=== PATIENT | male | born 1970 | race Caucasian/White ===

== ENCOUNTER 2017-11-29 22:41 | Emergency (ER) | payer BC ==
[2017-11-29] MEDS ORDERED: Ondansetron 4 MG/2 ML SDV IVPUSH ONE (23:26)
[2017-11-29] MEDS ORDERED: Sodium Chloride 0.9% 10 ML Syringe FLUSH PRN (23:26)
[2017-11-29] MEDS ORDERED: Ketorolac 30 MG/ML SDV IVPUSH ONE (23:26)
[2017-11-29] MEDS ORDERED: Sodium Chloride 0.9% 1,000 ML IV ONE (23:26)
--- NOTE | 2017-11-29 23:48 | EDM.PDOC ---
ED HPI GENERAL MEDICAL PROBLEM - General Chief Complaint: Genitourinary Problem Stated Complaint: LOWER BACL PAIN AND PAIN IN TESTICLES Time Seen by Provider: 11/29/17 22:57 Source of Information: Reports: Patient History Limitations: Reports: No Limitations - History of Present Illness INITIAL COMMENTS - FREE TEXT/NARRATIVE: The patient is a 47-year-old male with a chief complaint of right flank pain. He states he's had pain for about 4 days. There is no provoking factor. The pain is sharp and radiates to his right testicle. It comes and goes. There is no provoking factor. At its worst the pain is very severe and he can't find a comfortable position. Currently the pain is not severe. He has been taking an occasional Aleve and does feel like that helps. He is also noticed that his urine has been very dark and coffee colored on occasion. No known fever. He is nauseated from the pain. No abdominal pain. No testicular swelling. States he had similar symptoms many years ago and thinks he passed a kidney stone but he never did get imaging to confirm. No cough or shortness of breath or chest pain. 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 Denies: Abdominal Pain : Reports: Flank Pain, Hematuria Musculoskeletal: Reports: No Symptoms Skin: Reports: No Symptoms Neurological: Reports: No Symptoms Psychiatric: Reports: No Symptoms Hematologic/Lymphatic: Reports: No Symptoms Immunologic: Reports: No Symptoms ED EXAM, RENAL/ - Physical Exam Exam: See Below Exam Limited By: No Limitations General Appearance: Alert, WD/WN, No Apparent Distress Eye Exam: Bilateral Eye: Normal Inspection Ears: Normal External Exam Nose: Normal Inspection Throat/Mouth: Normal Inspection, Normal Oropharynx, Normal Voice Head: Atraumatic, Normocephalic Neck: Normal Inspection, Supple, Non-Tender, Full Range of Motion Respiratory/Chest: No Respiratory Distress, Lungs Clear, Normal Breath Sounds, Chest Non-Tender Cardiovascular: Normal Peripheral Pulses, Regular Rate, Rhythm, No Murmur GI/Abdominal: Soft, Non-Tender, No Distention. No: Rebound (Male) Exam: Normal Inspection. No: Scrotal Swelling, Scrotum Tenderness (L) , Scrotum Tenderness (R), Testicular Tenderness (L), Testicular Tenderness (R) Back Exam: Normal Inspection, CVA Tenderness (R). No: CVA Tenderness (L) Extremities: Normal Inspection Neurological: Alert, Oriented, Normal Cognition, No Motor/Sensory Deficits Psychiatric: Normal Affect, Normal Mood Skin Exam: Warm, Dry, Intact, Normal Color, No Rash Course - Vital Signs Last Recorded V/S: Last Vital Signs Temp 37.2 C 11/29/17 22:50 Pulse 70 11/29/17 22:50 Resp 17 11/29/17 22:50 BP 133/82 11/29/17 22:50 Pulse Ox 97 11/29/17 22:50 - Orders/Labs/Meds Orders: Active Orders 24 hr Category Date Time Status Peripheral IV Care [RC] . DIRECTED Care 11/29/17 23:26 Active Peripheral IV Care [RC] . DIRECTED Care 11/29/17 23:26 Active Abdomen Pelvis wo Cont [CT] Stat Exams 11/29/17 23:44 Taken Peripheral IV Insertion Adult [OM.PC] Routine Oth 11/29/17 23:26 Ordered Labs: Laboratory Tests 11/29/17 11/29/17 11/29/17 Range/Units 23:05 23:45 23:45 WBC 9.05 (4.23-9.07) K/mm3 RBC 4.45 L (4.63-6.08) M/mm3 Hgb 13.4 L (13.7-17.5) gm/L Hct 39.7 L (40.1-51.0) % MCV 89.2 (79.0-92.2) fl MCH 30.1 (25.7-32.2) pg MCHC 33.8 (32.2-35.5) g/dl RDW Std Deviation 40.4 (35.1-43.9) fL Plt Count 229 (163-337) K/mm3 MPV 9.9 (9.4-12.3) fl Neut % (Auto) 71.9 H (34.0-67.9) % Lymph % (Auto) 16.4 L (21.8-53.1) % [place] % (Auto) 9.2 (5.3-12.2) % Eos % (Auto) 1.9 (0.8-7.0) Baso % (Auto) 0.4 (0.1-1.2) % Neut # (Auto) 6.51 H (1.78-5.38) K/mm3 Lymph # (Auto) 1.48 (1.32-3.57) K/mm3 [place] # (Auto) 0.83 H (0.30-0.82) K/mm3 Eos # (Auto) 0.17 (0.04-0.54) K/mm3 Baso # (Auto) 0.04 (0.01-0.08) K/mm3 Sodium 139 (136-145) mEq/L Potassium 4.1 (3.5-5.1) mEq/L Chloride 104 (98-107) mEq/L Carbon Dioxide 27 (21-32) mEq/L Anion Gap 12.1 (5-15) BUN 21 H (7-18) mg/dL Creatinine 1.1 (0.7-1.3) mg/dL Est Cr Clr Drug Dosing 89.77 mL/min Estimated GFR (MDRD) > 60 (>60) mL/min BUN/Creatinine Ratio 19.1 H (14-18) Glucose 107 H (74-106) mg/dL Calcium 9.3 (8.5-10.1) mg/dL Total Bilirubin 0.5 (0.2-1.0) mg/dL AST 16 (15-37) U/L ALT 19 (16-63) U/L Alkaline Phosphatase 49 (46-116) U/L Total Protein 7.2 (6.4-8.2) g/dl Albumin 4.0 (3.4-5.0) g/dl Globulin 3.2 gm/dL Albumin/Globulin Ratio 1.3 (1-2) Urine Color Yellow (Yellow) Urine Appearance Clear (Clear) Urine pH 6.0 (5.0-8.0) Ur Specific [place] > or = 1.030 (1.005-1.030) Urine Protein Negative (Negative) Urine Glucose (UA) Negative (Negative) Urine Ketones Negative (Negative) Urine Occult Blood 3+ H (Negative) Urine Nitrite Negative (Negative) Urine Bilirubin Negative (Negative) Urine Urobilinogen 0.2 (0.2-1.0) Ur Leukocyte Esterase Negative (Negative) Urine RBC 30-40 H (0-5) /hpf Urine WBC 0-5 (0-5) /hpf Ur Epithelial Cells 0-5 (0-5) /hpf Urine Bacteria Few (FEW) /hpf Urine Mucus Few (FEW) /hpf Meds: Medications Discontinued Medications Generic Name Dose Route Start Last Admin Trade Name Freq PRN Reason Stop Dose Admin Sodium Chloride 1,000 mls @ 1,000 mls/hr 11/29/17 23:26 11/29/17 23:41 Normal Saline IV 11/30/17 00:25 1,000 mls/hr ONETIME ONE Administration Ketorolac Tromethamine 30 mg 11/29/17 23:26 11/29/17 23:41 Toradol IVPUSH 11/29/17 23:27 30 mg ONETIME ONE Administration Ondansetron HCl 4 mg 11/29/17 23:26 11/29/17 23:41 Zofran IVPUSH 11/29/17 23:27 4 mg ONETIME ONE Administration Oxycodone HCl 5 mg 11/30/17 00:43 11/30/17 01:03 Oxycodone PO 11/30/17 00:44 5 mg ONETIME ONE Administration Sodium Chloride 10 ml 11/29/17 23:26 11/29/17 23:42 Saline Flush FLUSH 10 ml ASDIRECTED PRN Administration Keep Vein Open - Re-Assessments/Exams Free Text/Narrative Re-Assessment/Exam: 11/30/17 00:44 UA shows microscopic hematuria, no evidence of infection. Creatinine 1.1. CBC normal. CT shows 4mm stone in the mid-distal ureter. 11/30/17 03:59 Departure - Departure Time of Disposition: 02:00 Disposition: Home, Self-Care 01 Clinical Impression: Ureterolithiasis - Discharge Information Prescriptions: Ibuprofen 800 mg PO TID PRN #40 tablet PRN Reason: Pain oxyCODONE 5 mg PO QID PRN #15 tab PRN Reason: Pain Instructions: Dysuria Referrals: Barbara Noyola PA [Primary Care Provider] - Forms: ED Department Discharge Additional Instructions: 1. Take ibuprofen as prescribed for pain. Take oxycodone as needed for severe pain. No driving/working while taking oxycodone as it may make you sleepy or confused. 2. Follow up with your regular doctor or a urologist if you are still having significant pain after a week. 3. Return to the ED if you have severe pain, fever with temp 101 or higher, multiple episodes of vomiting without keeping liquids down, or other concerning symptoms. - My Orders Last 24 Hours: My Active Orders 11/29/17 23:26 Peripheral IV Care [RC] . DIRECTED Peripheral IV Care [RC] . DIRECTED Peripheral IV Insertion Adult [OM.PC] Routine 11/29/17 23:44 Abdomen Pelvis wo Cont [CT] Stat - Assessment/Plan Last 24 Hours: My Active Orders 11/29/17 23:26 Peripheral IV Care [RC] . DIRECTED Peripheral IV Care [RC] . DIRECTED Peripheral IV Insertion Adult [OM.PC] Routine 11/29/17 23:44 Abdomen Pelvis wo Cont [CT] Stat
[2017-11-30] MEDS ORDERED: oxyCODONE 5 MG Tab PO ONE (00:43)
--- NOTE | 2017-11-30 08:52 | CT ---
CT abdomen and pelvis Technique: Multiple axial sections were obtained from above the dome of the diaphragm inferiorly through the pubic symphysis. Intravenous and oral contrast was not utilized. Study has been performed as a ureteral stone protocol. Findings: Right ureter is dilated. This finding is caused by distal right ureteral stone measuring about 5 mm. Stone occurs approximately 4-5 cm proximal to the UVJ. Multiple small nonobstructing calculi are seen within both kidneys. No additional ureteral calculi are seen. Visualized lung bases are clear. Noncontrast appearance of the liver appears within normal limits. Abnormality is identified within the posterior spleen measuring about 2.8 cm. This does not have the appearance of a simple cyst. Adrenal glands show no nodule. Pancreas is within normal limits. Gallbladder contains no calcified gallstones. Aorta shows no aneurysm. No retroperitoneal adenopathy or mesenteric abnormalities are seen. No pelvic mass or adenopathy is seen. Appendix is seen which is normal in size. Bone window settings were reviewed which appear within normal limits for the patient's age. Impression: 1. Multiple small nonobstructing calculi within both kidneys. 2. Right ureteral dilatation caused by an obstructing distal right ureteral stone measuring approximately 5 mm. Stone is located approximately 4-5 cm proximal to the UVJ. 3. 2.8 cm splenic lesion, ultrasound is recommended to further evaluate. Diagnostic code #9 I agree with preliminary report issued by [facility] ([facility] report finalized on 11/30/17, 2:33 AM Central Time)
== END 2017-11-30 01:33 | disposition home or self-care (01) ==
LOC: JD.ED 22:41
DX: N20.2 Calculus of kidney with calculus of ureter (principal); Z79.899 Other long term (current) drug therapy
CPT/HCPCS: 36415; 74176; 80053; 81001; 85025; 96361; 96374; 96375; 99284; A9270; J1885; J2405; J7040; J7050